=== PATIENT | male | born 1995 | race African-American/Black ===

== ENCOUNTER 2021-07-28 00:31 | Inpatient (IN) ==
[2021-07-28] MEDS ORDERED: LACTATED RINGERS 1,000 ML IV ONE ×2 (00:41→16:00)
[2021-07-28 00:51] LABS: Basophils % 0.6 % (0.0-0.8); Eosinophils # 0.1 10*3/uL (0.0-0.87); Eosinophils % 1.6 % (0.00-10.9); Hemoglobin 14.7 GM/DL (14.0-18.0); Lymphocytes # 2.2 10*3/uL (1.4-4.0); Lymphocytes % 41.9 % (21.2-54.2); Mean Corpuscular HGB Conc 34.2 GM/DL (32-36); Mean Corpuscular Volume 101.9 FL (87-102); Mean Platelet Volume 11.5 FL (9.6-12.0); Monocytes # 0.4 10*3/uL (0.11-0.8); Monocytes % 8.1 % (1.7-12.7); NRBC # 0.04 10*3/uL; Neutrophils % 47.8 % (38.7-73.9); Platelet Count 78 T/CUMM (130-400); Red Blood Count 4.22 MC/CUMM (3.8-5.5); Red Cell Distribution Width 12.1 % (9.3-17.3); White Blood Count 5.2 T/CUMM (4-12)
[2021-07-28 01:14] LABS: Platelet Estimate Decreased
[2021-07-28 01:15] LABS: Macrocytosis 1+
[2021-07-28 01:23] LABS: Calcium 8.2 MG/DL (8.5-10.1); Potassium 3.4 MMOL/L (3.5-5.1)
[2021-07-28] MEDS ORDERED: MUPIROCIN 2% OINT 22 GM TUBE TOP STA (01:25)
[2021-07-28] MEDS ORDERED: fentaNYL 100 MCG/2 ML VIAL IV STA ×2 (01:38→02:28)
[2021-07-28] MEDS ORDERED: ONDANSETRON 4 MG/2 ML VIAL IV PRN (02:59)
[2021-07-28] MEDS ORDERED: HYDROmorphone 1 MG/1 ML SYRINGE IV PRN (02:59)
[2021-07-28] MEDS: LACTATED RINGERS 1,000 ML IV SCH ×3 (04:15→23:16)
[2021-07-28] MEDS: PANTOPRAZOLE 40 MG TABLET PO SCH (08:04)
[2021-07-28] MEDS ORDERED: LORazepam 2 MG/1 ML VIAL IV PRN (10:56)
[2021-07-28 11:34] LABS: Hematocrit 38.5 VOL% (42.0-52.0); Hemoglobin 13.4 GM/DL (14.0-18.0); Platelet Count 136 T/CUMM (130-400)
[2021-07-28 11:44] LABS: PT Patient Result 11.1 SECS (10.5-12.0); Partial Thromboplastin Time 26.7 SECS (23.7-32.9)
[2021-07-28] MEDS ORDERED: KETOROLAC 30 MG/1 ML VIAL IV ONE (16:50)
[2021-07-28 17:04] LABS: Hematocrit 36.8 VOL% (42.0-52.0); Hemoglobin 12.8 GM/DL (14.0-18.0)
[2021-07-28] MEDS: KETOROLAC 15 MG/1 ML VIAL IV SCH ×2 (18:01→23:15)
[2021-07-29 05:10] LABS: Basophils % 0.2 % (0.0-0.8); Eosinophils # 0.1 10*3/uL (0.0-0.87); Eosinophils % 1.8 % (0.00-10.9); Hemoglobin 11.6 GM/DL (14.0-18.0); Immature Granulocytes % 0.2 %; Immature Granulocytes Absolute 0.01 #; Lymphocytes # 1.4 10*3/uL (1.4-4.0); Lymphocytes % 32.2 % (21.2-54.2); Mean Corpuscular HGB Conc 34.1 GM/DL (32-36); Mean Corpuscular Volume 101.5 FL (87-102); Mean Platelet Volume 11.2 FL (9.6-12.0); Monocytes # 0.4 10*3/uL (0.11-0.8); Monocytes % 9.1 % (1.7-12.7); Neutrophils % 56.5 % (38.7-73.9); Platelet Count 110 T/CUMM (130-400); Red Blood Count 3.35 MC/CUMM (3.8-5.5); White Blood Count 4.4 T/CUMM (4-12)
[2021-07-29 05:28] LABS: Calcium 8.1 MG/DL (8.5-10.1); Osmolality,Calculated 274.5 MOS/KG (273-304); Potassium 3.8 MMOL/L (3.5-5.1)
[2021-07-29] MEDS: LACTATED RINGERS 1,000 ML IV SCH ×2 (05:31→11:35)
[2021-07-29] MEDS: KETOROLAC 15 MG/1 ML VIAL IV SCH ×4 (06:12→22:50)
[2021-07-29] MEDS: FOLIC ACID 1 MG TABLET PO SCH (08:50)
[2021-07-29] MEDS: MULTIVITAMIN (CENTRUM) TABLET PO SCH (08:50)
[2021-07-29] MEDS: PANTOPRAZOLE 40 MG TABLET PO SCH (08:50)
[2021-07-29] MEDS: THIAMINE 200 MG/2 ML VIAL IV SCH (08:50)
[2021-07-30] MEDS: LACTATED RINGERS 1,000 ML IV SCH (01:07)
[2021-07-30] MEDS: KETOROLAC 15 MG/1 ML VIAL IV SCH ×3 (05:56→17:47)
[2021-07-30] MEDS: PANTOPRAZOLE 40 MG TABLET PO SCH (09:23)
[2021-07-30] MEDS: MULTIVITAMIN (CENTRUM) TABLET PO SCH (09:23)
[2021-07-30] MEDS: FOLIC ACID 1 MG TABLET PO SCH (09:23)
[2021-07-30] MEDS: THIAMINE 200 MG/2 ML VIAL IV SCH (09:23)
[2021-07-31] MEDS: KETOROLAC 15 MG/1 ML VIAL IV SCH ×5 (00:20→23:16)
[2021-07-31 04:48] LABS: Basophils % 0.4 % (0.0-0.8); Eosinophils # 0.2 10*3/uL (0.0-0.87); Eosinophils % 4.5 % (0.00-10.9); Hematocrit 33.8 VOL% (42.0-52.0); Hemoglobin 11.7 GM/DL (14.0-18.0); Immature Granulocytes % 0.2 %; Immature Granulocytes Absolute 0.01 #; Lymphocytes # 1.2 10*3/uL (1.4-4.0); Lymphocytes % 26.6 % (21.2-54.2); Mean Corpuscular HGB Conc 34.6 GM/DL (32-36); Mean Corpuscular Volume 101.5 FL (87-102); Mean Platelet Volume 10.8 FL (9.6-12.0); Monocytes # 0.4 10*3/uL (0.11-0.8); Monocytes % 8.5 % (1.7-12.7); Neutrophils % 59.8 % (38.7-73.9); Platelet Count 118 T/CUMM (130-400); Red Blood Count 3.33 MC/CUMM (3.8-5.5); Red Cell Distribution Width 11.9 % (9.3-17.3); White Blood Count 4.5 T/CUMM (4-12)
[2021-07-31 05:05] LABS: Calcium 8.3 MG/DL (8.5-10.1); Osmolality,Calculated 276.4 MOS/KG (273-304); Potassium 3.7 MMOL/L (3.5-5.1)
[2021-07-31] MEDS: MULTIVITAMIN (CENTRUM) TABLET PO SCH (08:43)
[2021-07-31] MEDS: FOLIC ACID 1 MG TABLET PO SCH (08:43)
[2021-07-31] MEDS: THIAMINE 200 MG/2 ML VIAL IV SCH (08:43)
[2021-07-31] MEDS: PANTOPRAZOLE 40 MG TABLET PO SCH (08:43)
[2021-08-01] MEDS: KETOROLAC 15 MG/1 ML VIAL IV SCH (06:05)
[2021-08-01] MEDS: THIAMINE 200 MG/2 ML VIAL IV SCH (08:32)
[2021-08-01] MEDS: FOLIC ACID 1 MG TABLET PO SCH (08:32)
[2021-08-01] MEDS: PANTOPRAZOLE 40 MG TABLET PO SCH (08:32)
[2021-08-01] MEDS: MULTIVITAMIN (CENTRUM) TABLET PO SCH (08:32)
[2021-08-01 12:02] VITALS: BP 118/69
== END 2021-08-01 12:15 | disposition home or self-care (01) | DRG 201 ==
LOC: EDUNIT# 00:31 → N.3E 00:31 → N.ED 00:31 → EDBD 00:31 → N.3E 04:25
PROVIDERS: ADMIT Surgery; ATTEND Surgery